=== PATIENT | female | born 1995 | race Caucasian/White ===

== ENCOUNTER 2016-08-10 08:56 | Inpatient (IN) | payer BC ==
[~2016-08-10] VITALS: Ht 162.6 cm; Wt 121.1 kg
--- NOTE | ~2016-08-10 | OR ---
PATIENT'S NAME: CHRISTIAN NEAL [facility] AGE: 21 Y [address] ROOM: [place] [id number] LOCATION: GOBS ADMIT DATE: 08/10/2016 OR/Procedure Report DISCHARGE DATE: FAMILY PHYSICIAN: Shabnam Solis MD ATTENDING PHYSICIAN: Shabnam Solis SURGEON: Toro Camargo MD RAIL CAR MECHANIC: Shabnam Solis M.D. Her assistance was required for delivery of the fetus as well as adequate exposure during the case. DATE OF PROCEDURE: 08/11/2016 PREOPERATIVE DIAGNOSES: 1. Intrauterine at 40 weeks 4 days. 2. Arrest of dilation. 3. Bipolar disorder. 4. Obesity. POSTOPERATIVE DIAGNOSES: 1. Intrauterine at 40 weeks 4 days. 2. Arrest of dilation. 3. Bipolar disorder. 4. Obesity. PROCEDURE PERFORMED: Primary low transverse section. ANESTHESIA: Epidural. FINDINGS: Viable female with score of 8 and 9 and weight of 7 pounds 1 ounce. Placenta intact with 3-vessel cord. Normal uterus. Normal fallopian tubes and ovaries bilaterally. ESTIMATED BLOOD LOSS: 700 mL. COMPLICATIONS: None. INDICATIONS: The patient is a 21-year-old female, who presented to Labor and Delivery at 40 weeks 3 days for induction of labor. She progressed to 9 cm and had arrest of dilation. section was recommended. She was counseled about the risks of the procedure including, bleeding, infection, damage to surrounding organs and tissue including bowel, bladder, blood vessels, ureters, and nerves. She was counseled about the risk of needing additional procedures or hospitalization due to any complications. DESCRIPTION OF PROCEDURE: The patient was taken to the operating room. Plascencia catheter was already in place. Epidural was already in place. She was placed PATIENT'S NAME: CHRISTIAN NEAL [facility] AGE: 21 Y [address] ROOM: [place] [id number] LOCATION: [facility] ADMIT DATE: 08/10/2016 OR/Procedure Report DISCHARGE DATE: FAMILY PHYSICIAN: Shabnam Solis MD ATTENDING PHYSICIAN: Shabnam Solis in dorsal supine position. She was prepped and draped in the usual sterile fashion. Time-out was performed. Anesthesia was found to be adequate. A scalpel was then used to make a Pfannenstiel incision and carried down to the underlying fascia. The fascial incision was scored in the midline and the fascial incision was carried laterally with Ortiz scissors bilaterally. The rectus muscles were dissected off the fascia superiorly and inferiorly with sharp and blunt dissection. The peritoneum was identified and entered bluntly. The peritoneal incision was extended. A bladder blade was placed for visualization. A scalpel was then used to make transverse incision in the lower uterine segment. This was extended in cephalad-caudal direction. The head was brought through the incision and delivered followed by the remainder of the fetus. The cord was clamped and cut. The infant was taken over to the delivery team. Cord blood was obtained. The placenta was then extracted. The uterus was exteriorized and cleared off remaining clots and debris. Uterine atony was noted at this time. The hysterotomy was closed in running locked fashion using 0 chronic suture. The patient did receive Methergine for uterine atony with improvement of uterine tone. Hemostasis did require [id number] sutures at each angle as well as two in the midline. The posterior cul-de-sac was cleared off remaining clots and debris. The uterus was replaced into the abdominal cavity. The pericolic gutters were cleared of clots and debris. Hysterotomy was re-examined and noted to be hemostatic. The rectus muscles and fascia were inspected and noted to be hemostatic. The fascia was then closed in running fashion using 0 Vicryl suture. The subcutaneous tissue was irrigated and any areas bleeding were cauterized. It was then closed in a running fashion using 2-0 Vicryl. The skin was then closed in subcuticular fashion using 4-0 Monocryl followed by Steri-Strips and a pressure dressing. Instrument, sponge, and needle counts were correct prior to the abdominal closure and at the conclusion the case. DISPOSITION: Mom stable. Baby in room with mom. MD MICHELLE HAMILTON/guerda /[id number] d: 08/11/16 0233 t: 08/14/16 1309, OPERATIVE SUMMARY
--- NOTE | ~2016-08-10 | CON ---
PATIENT'S NAME: CHRISTIAN NEAL [facility] AGE: 21 Y [address] ROOM: [place] [address] LOCATION: BS ADMIT DATE: 08/10/2016 Consultation DISCHARGE DATE: FAMILY PHYSICIAN: Shabnam Solis MD ATTENDING PHYSICIAN: Shabnam Solis CONSULT NOTE I was consulted on this patient for arrest of dilation by Dr. Shabnam Solis. She was induction of labor today at 40 weeks 4 days. She progressed to 9 cm and had arrest of dilation. Therefore, my consultation was requested. The patient did have artificial rupture of membranes at 9 cm and failed to progress despite being on Pitocin. station was -1. status showed early decelerations with each contraction with moderate variability. The patient was counseled about the risks of procedure including bleeding, infection, damage to surrounding organs and tissues, including bowel, bladder, blood vessels, ureters, and nerves. She was counseled on the risk of needing additional procedures or hospitalizations due to any complications. The patient signed consents and agreed to proceed with delivery. MD MICHELLE HAMILTON/guerda /[id number] d: 08/11/16 0357 t: 08/14/16 1312, CONSULTATION REPORT
--- NOTE | ~2016-08-10 | HP ---
PATIENT'S NAME: CHRISTIAN NEAL [facility] AGE: 21 Y [address] ROOM: [place] [address] LOCATION: [facility] ADMIT DATE: 08/10/2016 History & Physical DISCHARGE DATE: FAMILY PHYSICIAN: Shabnam Solis MD ATTENDING PHYSICIAN: Shabnam Solis DATE OF SERVICE: HISTORY OF PRESENT ILLNESS: The patient is a 21-year-old G1, P0, at 40 weeks 4 days' gestation, who was being induced today for postdates' gestation. When she arrived, her cervix was found to be 2 cm dilated, 50% effaced, and -3 station with baby in the vertex position. She was started on Pitocin. She had good cervical change until approximately 2057 hours this evening. At that time, she was found to be 9 cm dilated with bulging bag of water and -1 station. I performed artificial rupture of membranes with clear fluid at approximately 2200 hours. Since then, she has had early variables with each contraction. There has been no further cervical change as her cervix is still 9 cm dilated, 90% effaced, and -1 station. PAST MEDICAL HISTORY: History of bipolar disorder. PAST SURGICAL HISTORY: None. FAMILY HISTORY: Noncontributory. MEDICATIONS: 1. Lamictal 25 mg twice daily. 2. vitamins daily. SOCIAL HISTORY: She lives with her significant other. 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 Rare caffeine use. Nonsmoker. REVIEW OF SYSTEMS: On arrival, she denied any fevers or chills. Denied any chest pain or shortness of breath. Denied any nausea, vomiting, diarrhea, or constipation. Denied any urinary symptoms. Denied any vaginal discharge or leakage of fluid. Denied any vaginal bleeding. Noted good movement. Denied any extremity swelling. OB HISTORY: PATIENT'S NAME: CHRISTIAN NEAL [facility] AGE: 21 Y [address] ROOM: [place] [address] LOCATION: [facility] ADMIT DATE: 08/10/2016 History & Physical DISCHARGE DATE: FAMILY PHYSICIAN: Shabnam Solis MD ATTENDING PHYSICIAN: Shabnam Solis She is a primip. Her EDC is on August 06, 2016 based on LMP. The first trimester ultrasound confirmed this with an EDC of August 01, 2016. Blood pressure ranges from 100 to 120 over 60 to 80. Weight gain has been approximately 20 pounds. Her blood type A positive. Antibody screen negative. GBS negative. Pap normal. Rubella immune. RPR nonreactive. Hepatitis B surface antigen negative. Quad screen was declined. PHYSICAL EXAMINATION: VITAL SIGNS: See nursing record. GENERAL: She is awake, alert, and oriented. No signs of distress. HEART: Regular rate and rhythm without murmur. LUNGS: Clear to auscultation throughout. No crackles or wheezing noted. ABDOMEN: Gravid and nontender. Nondistended. heart tones have been in the 130s, reactive with good variability until recently when she has been having early variables with each contraction. [place]: She is having contractions every 2 to 3 minutes. Cervix is now stalled at 9 cm dilated, 90% effaced, and -1 station. ASSESSMENT AND PLAN: A 21-year-old primip being induced with Pitocin today at 40 weeks 4 days' gestation for postdates, now with failure to progress. heart tones for the last hour and an half have showed persistent variables with each contraction. Despite adequate Pitocin induction and artificial rupture of membranes producing clear fluid, she has had no further cervical change past 9 cm dilated, 90% effaced, and -1 station. Pitocin has since been stopped. I have called and spoke with Dr. Camargo. We have planned to proceed with a primary low-transverse . She has had an epidural for pain control. She is GBS negative. MD XENIA DE JESUS/guerda /[id number] D: 243 T: 829 HISTORY & PHYSICAL
--- NOTE | ~2016-08-10 | DS ---
PATIENT'S NAME: CHRISTIAN NEAL [facility] AGE: 21 Y [address] ROOM: [id number] [place], [place] [address] LOCATION: GOBS ADMIT DATE: 08/10/2016 Discharge Summary DISCHARGE DATE: 08/13/2016 FAMILY PHYSICIAN: Shabnam Solis MD ATTENDING PHYSICIAN: Shabnam Solis ADMISSION DIAGNOSIS: A 21-year-old , being induced at 40 weeks 4 days gestation for postdates with arrest of dilation resulting in primary low- transverse . DISCHARGE DIAGNOSIS: A 21-year-old G1 now P1, delivery via primary low transverse done by Dr. Toro Camargo. HOSPITAL COURSE: The patient was admitted at 40 weeks 4 days gestation for induction for postdates. She was started on Pitocin. She had good cervical change until she was 9 cm dilated and stalled at that dilation. There was some non-reassuring heart tones. She was GBS negative. Dr. Camargo was consulted and proceeded with a primary low-transverse . The patient recovered well. No issues or concerns . She delivered a viable female , weighing 7 pounds 1 ounce, with score of 8 at 1 minute and 9 at 5 minutes. DISPOSITION: Discharged home. FOLLOWUP: She is to follow up with Dr. Camargo in 2 weeks on Tuesday, August 27, 2016, at 2:15 p.m. for incision check. She is to follow up with Dr. Shabnam Solis at [facility] at 6 weeks, September 23, 2016, at 3:45 p.m. for a visit. DISCHARGE MEDICATIONS: 1. vitamins daily. 2. Lamotrigine 25 mg p.o. b.i.d. 3. Colace 240 mg p.o. b.i.d. 4. Ibuprofen 800 mg p.o. q.8 hours p.r.n. pain. 5. Percocet 5/325 mg 1 to 2 p.o. q.4 hours p.r.n. pain. DISCHARGE INSTRUCTIONS: She is to have pelvic rest for 6 weeks. No lifting over 15 pounds for 4 weeks. SHABNAM SOLIS MD KB/modl PATIENT'S NAME: CHRISTIAN NEAL [facility] AGE: 21 Y [address] ROOM: [address] [address] LOCATION: [facility] ADMIT DATE: 08/10/2016 Discharge Summary DISCHARGE DATE: 08/13/2016 FAMILY PHYSICIAN: Shabnam Solis MD ATTENDING PHYSICIAN: Shabnam Solis /[id number] d: 08/31/16 0857 t: 09/21/16 0821, DISCHARGE SUMMARY
[2016-08-10 10:12] LABS: BASOPHIL # 0.1 K/uL (0.0-0.2); BASOPHIL % 0.3 %; EOSINOPHIL # 0.1 K/uL (0.0-0.5); HEMATOCRIT 35.5 % (33.0-46.0); HEMOGLOBIN 12.1 g/dL (11.0-15.0); IMMATURE GRANULOCYTE # 0.2 K/uL (0.0-0.3); IMMATURE GRANULOCYTE % 1.2 %; LYMPHOCYTE # 2.8 K/uL (0.8-4.0); LYMPHOCYTE % 19.3 %; MCH 27.8 pg (27.0-34.0); MCHC 34.1 gm/dL (32.0-36.5); MCV 81.6 fl (83.0-98.0); MONOCYTE # 0.9 K/uL (0.0-1.0); MONOCYTE % 6.2 %; MPV 11.3 fl (9.4-12.4); NEUTROPHIL # (ANC) 10.4 K/uL (1.8-7.8); NRBC % 0 /100WBC (0-0.00); PLATELET COUNT 171 K/uL (150-450); RBC 4.35 M/uL (3.50-5.00); RDW-CV 14.8 % (11.9-14.6); WBC 14.4 K/uL (4.0-11.0)
[2016-08-10] MEDS ORDERED: PRENATAL 1+1)(P1 TAB PO (11:43)
[2016-08-10] MEDS ORDERED: LAMICTAL100 MG PO (11:44)
[2016-08-10] MEDS ORDERED: LAMICTAL25 MG PO (11:54)
[2016-08-11 05:13] LABS: BASOPHIL # 0.1 K/uL (0.0-0.2); BASOPHIL % 0.2 %; EOSINOPHIL % 0.1 %; HEMATOCRIT 34.1 % (33.0-46.0); HEMOGLOBIN 11.5 g/dL (11.0-15.0); IMMATURE GRANULOCYTE # 0.2 K/uL (0.0-0.3); IMMATURE GRANULOCYTE % 0.7 %; LYMPHOCYTE # 1.8 K/uL (0.8-4.0); LYMPHOCYTE % 8.3 %; MCH 27.7 pg (27.0-34.0); MCHC 33.7 gm/dL (32.0-36.5); MCV 82.2 fl (83.0-98.0); MONOCYTE # 0.8 K/uL (0.0-1.0); MONOCYTE % 3.8 %; NEUTROPHIL # (ANC) 18.7 K/uL (1.8-7.8); NEUTROPHIL % 86.9 %; NRBC % 0 /100WBC (0-0.00); PLATELET COUNT 181 K/uL (150-450); RBC 4.15 M/uL (3.50-5.00); RDW-CV 14.9 % (11.9-14.6); WBC 21.6 K/uL (4.0-11.0)
--- NOTE | 2016-08-11 11:07 | NUR ---
Met with patient, spouse and multiple family members at bedside today. Introduced myself and the role of the CM department. Parents indicate they have all the necessary items for the baby. They have already contacted their insurance and they are only waiting on social security number to get baby added. Parents voice no concerns or needs. Will continue to follow while here.
--- NOTE | 2016-08-12 05:34 | NUR ---
VSS, fundus firm, mid, small flow, incision open to air, Perc last at 2130
--- NOTE | 2016-08-12 13:34 | NUR ---
Met with patient today to discuss signs of symptoms of post depression. Patient is bipolar and currently on Lamictal. She has a psychiatrist that manages her medications and bipolar symptoms. Reviewed all signs and symptoms of post depression with her and her spouse. Provided her with the hand out on PPD to refer to. Will continue to follow and offer supports.
--- NOTE | 2016-08-12 17:55 | NUR ---
08/12/16 1800; Encouraged longer Breastfeedings. VSS. Low abd. inc. intact/suture/steri. Last Perc@___ Bertrand at___. does well with infant.
--- NOTE | 2016-08-13 04:51 | NUR ---
VSS, fundus firm, 1 down, small flow, Percocet last at 0335
[2016-08-13] MEDS ORDERED: SURFAK240 MG PO (11:03)
[2016-08-13] MEDS ORDERED: ADVIL200 MG PO (11:04)
[2016-08-13] MEDS ORDERED: PERCOCET 5-3251 EACH PO (11:05)
== END 2016-08-13 11:55 | disposition disaster alternative care site (69) | DRG 765 ==
LOC: GOBM 08:56 → GOBS 08:56 → GOBM 08:57 → GOBS 18:20
PROVIDERS: ADMIT Family Medicine
PROC: 3E033VJ Introduction of Other Hormone into Peripheral Vein, Percutaneous Approach (ICD-10-PCS; principal; 2016-08-11)
PROC: 4A1HX4Z Monitoring of Products of Conception, Cardiac Electrical Activity, External Approach (ICD-10-PCS; principal; 2016-08-11)
PROC: 10D00Z1 Extraction of Products of Conception, Low, Open Approach (ICD-10-PCS; principal; 2016-08-11)
PROC: 10907ZC Drainage of Amniotic Fluid, Therapeutic from Products of Conception, Via Natural or Artificial Opening (ICD-10-PCS; principal; 2016-08-11)
DX: O62.1 Secondary uterine inertia (principal); Z68.42 Body mass index [BMI] 45.0-49.9, adult; F33.9 Major depressive disorder, recurrent, unspecified; O99.214 Obesity complicating childbirth; Z3A.40 40 weeks gestation of pregnancy; Z37.0 Single live birth
CPT/HCPCS: J0690; J1885; J2001; J2210; J2590; J3010; J7120

== ENCOUNTER 2016-08-24 01:24 | Observation (INO) | payer BC ==
[~2016-08-24] VITALS: Ht 162.6 cm; Wt 111.6 kg
--- NOTE | ~2016-08-24 | CON ---
PATIENT'S NAME: CHRISTIAN NEAL [facility] AGE: 21 Y [address] ROOM: [place] [address] LOCATION: GPCU ADMIT DATE: 08/24/2016 Consultation DISCHARGE DATE: FAMILY PHYSICIAN: Shabnam Solis MD ATTENDING PHYSICIAN: Shabnam Solis DATE OF CONSULTATION: 08/24/2016 REFERRING PHYSICIAN: TORO CAMARGO MD REASON FOR CONSULTATION: Pulmonary embolism after section. REFERRING PHYSICIAN: Dianne Tejada MD. CONSULTING PHYSICIAN: Toro Camargo MD. HISTORY OF PRESENT ILLNESS: The patient is a 21-year-old female who underwent a primary low-transverse section on August 11, 2016 for arrest of dilation at 40 weeks and 4 days. The patient's postoperative course is uncomplicated. She was discharged home on postoperative day #2. The patient presented to the ER overnight complaining of chest pain that radiated to her back. CT was performed and found to have pulmonary emboli at her lower lobe. The patient now feels well. She denies any other concerns. She denies any leg pain. Her incision is doing well and she is no longer needing ibuprofen or narcotics for her pain. PAST MEDICAL HISTORY: Bipolar disorder. PAST SURGICAL HISTORY: section on August 11, 2016. MEDICATIONS: Lamictal and vitamin. SOCIAL HISTORY: The patient denies tobacco, alcohol, or drug use. FAMILY HISTORY: The patient does report that her mother had a VTE after a surgery on her foot for bunion removal and that her uncle also had a VTE, but also has multiple other health issues and had an infection. PATIENT'S NAME: CHRISTIAN NEAL [facility] AGE: 21 Y [address] ROOM: [place] [id number] LOCATION: GPCU ADMIT DATE: 08/24/2016 Consultation DISCHARGE DATE: FAMILY PHYSICIAN: Shabnam Solis MD ATTENDING PHYSICIAN: Shabnam Solis REVIEW OF SYSTEMS: Negative except as noted in the HPI. ALLERGIES: NO KNOWN MEDICAL ALLERGIES. PHYSICAL EXAMINATION: VITAL SIGNS: Blood pressure of 134/84, temp 97.8, respiratory rate 14, pulse 85. GENERAL: She is alert and oriented, no acute distress. ABDOMEN: Soft and nontender. Incision is healing well. No erythema, ecchymosis, or disruption of the incision. EXTREMITIES: No edema. No pain of the lower extremities. DIAGNOSTIC DATA: Laboratory work shows hemoglobin is 10.6, creatinine of 0.9. AST and ALT are normal. Radiology, she had a normal chest x-ray and PE protocol. CT scan did show a left lower lobe subsegmental and segmental pulmonary emboli and pulmonary arteries. ASSESSMENT: The patient is a 21-year-old who is postop day #14, status post primary low transverse section, now with a pulmonary embolism. RECOMMENDATIONS: I recommended that the patient be started on Lovenox. I have discussed with Dr. Tejada that warfarin is safe with and thus it is easier with warfarin, need for the patient to take all medications and she can be bridged to warfarin. Recommended treatment time is 3 to 6 months. I did discuss with the patient that she will need prophylactic Lovenox with her next to prevent blood clot. We discussed that this could just be uncertainty related event. She states she had testing done and was negative for workup for thrombophilias, but this could be considered with her. All questions were answered. I appreciate this consult. MD MICHELLE HAMILTON/guerda /[id number] d: 08/24/16 1546 t: 08/29/16 1129, CONSULTATION REPORT
--- NOTE | ~2016-08-24 | HP ---
PATIENT'S NAME: JESSICA NEAL [facility] AGE: 21 Y [address] ROOM: [place] [address] LOCATION: GPCU ADMIT DATE: 08/24/2016 History & Physical DISCHARGE DATE: FAMILY PHYSICIAN: Shabnam Solis MD ATTENDING PHYSICIAN: Shabnam Solis DATE OF SERVICE: CHIEF COMPLAINT: Chest pain. HISTORY OF PRESENT ILLNESS: Jessica is a 21-year-old, 1, para 1, who is 2 weeks' postcesarean section, who presented to the emergency room in the middle of the night with sudden onset of chest pain which is pleuritic in nature radiating through to her back and shortness of breath. She is evaluated by Dr. Briggs in the emergency room and found to have a left lower lobe pulmonary embolism. At this time, she is feeling much better. Her pain has resolved. The shortness of breath has resolved. Her vitals have been stable and her oxygen saturation was 100% done in the ER and she never required any supplemental oxygen. She denies any pain or swelling in her legs at this time. She underwent on 08/14/2016, after arrest of dilation. There were no complications during the surgery, or postoperatively, she did not require any blood. She went home in the usual time. She has otherwise been healthy. She denies any prior history of blood clots. She is a nonsmoker. No significant family history of blood clots. PAST MEDICAL HISTORY: Operations includes section. No other hospitalizations. Illnesses: Bipolar disorder and obesity. MEDICATIONS: 1. Lamictal 25 mg b.i.d. 2. vitamins. 3. Ibuprofen 200 mg every 6 hours as needed for pain. ALLERGIES: NONE KNOWN. FAMILY HISTORY: Positive for diabetes, hypertension, and heart disease in maternal grandmother. She had a paternal uncle with a blood clot and an aunt with a blood clot. The aunt had testing and was found to have no genetic predisposition. PATIENT'S NAME: JESSICA NEAL [facility] AGE: 21 Y [address] ROOM: [place] [address] LOCATION: GPCU ADMIT DATE: 08/24/2016 History & Physical DISCHARGE DATE: FAMILY PHYSICIAN: Shabnam Solis MD ATTENDING PHYSICIAN: Shabnam Solis SOCIAL HISTORY: She is a nonsmoker, nondrinker. She is , just had her first baby 2 weeks ago. She is currently breast-feeding and is producing excellent supply of milk. She states she is getting 5 ounces every time she pumps and the baby is taking about 3. 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 REVIEW OF SYSTEMS: GENERAL: Negative. ENT: Negative. CARDIOVASCULAR: See HPI. RESPIRATORY: Currently, no shortness of breath, coughing, or wheezing. GI: Negative. : Negative. MUSCULOSKELETAL: Negative. PSYCH: Her mood disorder is very well controlled with the Lamictal. She has a history of depression and suicidality in her high school and college years, but that it has been at least 2 to 3 years ago. She denies having depression at this time. PHYSICAL EXAMINATION: GENERAL: Jessica is a well-developed, well-nourished 21-year-old female. She is alert, cooperative, in no acute distress. She gives an excellent history. VITAL SIGNS: Temperature 98.2, pulse 74 and regular, respirations 14, blood pressure 139/75, height 5 feet 4 inches, weight 111.6 kg, and BMI is 42.2. HEENT: Pupils are equal and reactive. Extraocular muscles intact. Sclerae are clear. Oropharynx is normal with moist mucous membranes. NECK: Supple without masses or thyromegaly. HEART: Regular rate and rhythm without murmurs. LUNGS: Lung sounds are clear in all rod. ABDOMEN: Soft. No organomegaly, masses, or tenderness. Her scar is well healed. EXTREMITIES: She has only trace peripheral edema. No calf tenderness. Negative Homans. LAB WORK: White blood count 10.8, hemoglobin 10.6, and platelets 309,000. Differential is unremarkable. PT and PTT are normal. Chemistry Panel: Potassium low- normal at 3.6 and albumin 2.9. The rest of her chemistry panel was normal. CK, CK-MB, and troponin all negative. Magnesium 2.1. Quantitative HCG is 5.0. D-dimer elevated at 8.92. Chest x-ray negative. CT of the chest with PE protocol does reveal a segmental and subsegmental pulmonary emboli in the left lower lobe. PATIENT'S NAME: JESSICA NEAL [facility] AGE: 21 Y [address] ROOM: [id number] [place], [place] [address] [facility] ADMIT DATE: 08/24/2016 History & Physical DISCHARGE DATE: FAMILY PHYSICIAN: Shabnam Solis MD ATTENDING PHYSICIAN: Shabnam Solis ASSESSMENT: 1. Acute pulmonary embolism. 2. 2 weeks' postop . 3. Breast-feeding. 4. Obesity. 5. Mood disorder, stable. PLAN: She is being admitted to the hospital for observation. I have initiated Lovenox 1 mg/kg subcutaneously every 12 hours in the emergency room. We will have Dr. Camargo consult. Her vitals are excellent and her O2 saturations is 100%, so likely she will be able to continue treatment for the pulmonary embolism as an outpatient beginning tomorrow if all are stable. Duplex scan of both lower extremities is pending. We will allow her to breast-feed and after consultation with Dr. Camargo. I have given her the options of continuing with Lovenox or switching to Coumadin and she would prefer to switch to Coumadin, so we will begin that process tomorrow. She will likely go home on Lovenox and Coumadin until the INR is therapeutic. We will plan continuous anticoagulants for 6 months. PROGNOSIS: Good. MD ADELA STONE/guerda /[id number] D: 134 T: 428 HISTORY & PHYSICAL
--- NOTE | ~2016-08-24 | ENPV ---
Vascular Lower Extremities DVT Study Procedure Demographics Patient Name CHRISTIAN NEAL Date of Study 08/25/2016 Patient Number [id number] Gender Female Date of 1995 Age 21 Visit Number [id number] Height Accession Number [id number] Weight Room Number G6334 BSA BMI Referring Terrell Gay MD Interpreting Phuc Chavez MD Physician Will Castellano MD Physician Physician Ordering Physician Terrell Gay MD Structural Rigger Baggage Inspector Brennen Engel [facility] Conclusions Summary No evidence of deep vein thrombosis or superficial thrombophlebitis in the lower extremities bilaterally . There is rouleaux flow seen in the left popliteal vein- sometimes associated with fluid overload states or more proximal obstruction. Procedure Type of Study: Veins:Lower Extremities DVT Study, Venous Duplex Lower Extremity Bilateral. Indications for Study:Pulmonary embolism. Appropriate Use Criteria:9 Study Location:Inpatient Portable. Technical Quality:Adequate visualization. - Preliminary reported to:Dr. Tejada. Velocities are measured in cm/s ; Diameters are measured in cm Right Lower Extremities DVT Study Measurements Right 2D and Doppler Measurements + + + + +------+------+ + !Location !Visualized!Compressibility!Thrombosis!Signal!Reflux!Reflux ! ! ! ! ! ! ! !(sec) ! + + + + +------+------+ + !GSV Thigh !Yes !Yes !None !Phasic! ! ! + + + + +------+------+ + !Common !Yes !Yes !None !Phasic! ! ! !Femoral ! ! ! ! ! ! ! + + + + +------+------+ + !Prox !Yes !Yes !None !Phasic! ! ! !Femoral ! ! ! ! ! ! ! + + + + +------+------+ + !Mid Femoral!Yes !Yes !None !Phasic! ! ! + + + + +------+------+ + !Dist !Yes !Yes !None !Phasic! ! ! !Femoral ! ! ! ! ! ! ! + + + + +------+------+ + !Popliteal !Yes !Yes !None !Phasic! ! ! + + + + +------+------+ + !Gastroc !Yes !Yes !None ! ! ! ! + + + + +------+------+ + !PTV !Yes !Yes !None ! ! ! ! + + + + +------+------+ + !Peroneal !Yes !Yes !None ! ! ! ! + + + + +------+------+ + Left Lower Extremities DVT Study Measurements Left 2D and Doppler Measurements + + + + +------+------+ + !Location !Visualized!Compressibility!Thrombosis!Signal!Reflux!Reflux ! ! ! ! ! ! ! !(sec) ! + + + + +------+------+ + !GSV Thigh !Yes !Yes !None !Phasic! ! ! + + + + +------+------+ + !Common !Yes !Yes !None !Phasic! ! ! !Femoral ! ! ! ! ! ! ! + + + + +------+------+ + !Prox !Yes !Yes !None !Phasic! ! ! !Femoral ! ! ! ! ! ! ! + + + + +------+------+ + !Mid Femoral!Yes !Yes !None !Phasic! ! ! + + + + +------+------+ + !Dist !Yes !Yes !None !Phasic! ! ! !Femoral ! ! ! ! ! ! ! + + + + +------+------+ + !Popliteal !Yes !Yes !None !Phasic! ! ! + + + + +------+------+ + !Gastroc !Yes !Yes !None ! ! ! ! + + + + +------+------+ + !PTV !Yes !Yes !None ! ! ! ! + + + + +------+------+ + !Peroneal !Yes !Yes !None ! ! ! ! + + + + +------+------+ + Signature dtt: NOE MARIE dtd: 08/25/16 [facility] [place] Physician Volodymyr Cárdenas
--- NOTE | ~2016-08-24 | ER ---
PATIENT'S NAME: CHRISTIAN NEAL [facility] AGE: 21 Y [address] ROOM: [place] [address] LOCATION: GPCU ADMIT DATE: 08/24/2016 ER/Outpatient Report DISCHARGE DATE: FAMILY PHYSICIAN: Shabnam Solis MD ATTENDING PHYSICIAN: Dianne Tejada Time of Arrival: 0124 hours. Time Seen: 0124 hours. IDENTIFICATION: A 21-year-old female. CHIEF COMPLAINT: Chest and back pain and difficulty breathing. HISTORY OF PRESENT ILLNESS: The patient is a 21-year-old female who woke up at 12:45 with pain in her mid chest, upper abdomen, radiating through to her back. Sudden onset associated with shortness of breath. No diaphoresis. No nausea or vomiting. No other problems or concerns. PAST MEDICAL HISTORY: ALLERGIES: NO KNOWN DRUG ALLERGIES. CURRENT MEDICATIONS: 1. Lamictal. 2. vitamins. MEDICAL PROBLEMS: Bipolar disorder. OB HISTORY: The patient is a G1, P0, who had a primary low-transverse section on 08/10/2016 for failure to progress. The patient is . SOCIAL HISTORY: The patient has a 2-week-old girl. She is . Lives here in [place]. 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 Tobacco use, denies. Alcohol use, occasional. Drug use, denies. REVIEW OF SYSTEMS: All systems reviewed and negative other than what is noted in the HPI. The patient denies any lower extremity swelling. The patient continues to have PATIENT'S NAME: CHRISTIAN NEAL [facility] AGE: 21 Y [address] ROOM: [place] [address] LOCATION: GPCU ADMIT DATE: 08/24/2016 ER/Outpatient Report DISCHARGE DATE: FAMILY PHYSICIAN: Shabnam Solis MD ATTENDING PHYSICIAN: Dianne Tejada just a minimal amount of vaginal bleeding. The patient has not been sexually active since delivery of her baby. FAMILY HISTORY: Mother had PE following foot surgery but was apparently negative for coagulopathy workup. PHYSICAL EXAMINATION: VITAL SIGNS: Height 5 feet 4 inches, weight 111.9 kilogram, blood pressure 152/94, pulse 82, respirations 18, temperature 97.5, sats 100% on room air. GENERAL: A 21-year-old female, in mild distress. HEENT: Head; normocephalic, atraumatic. Ears: TMs translucent, both ears. Eyes: Pupils equal and reactive to light and accommodation. Extraocular movements intact. Conjunctivae clear. Nose: Mucosa pink. No lesions or drainage. Mouth: No lesions. Pharynx benign. NECK: Supple. No lymphadenopathy. LUNGS: Clear to auscultation. Breath sounds are equal. No rhonchi, wheezes, or rales. HEART: Regular rate and rhythm. No murmur, rub, or gallop. ABDOMEN: Bowel sounds present. Soft, nondistended. No hepatosplenomegaly. No palpable masses. Nontender. The patient has no abdominal pain and no right upper quadrant tenderness on exam. SKIN: [place], warm, and dry. No lesions or rashes noted. NEURO: The patient is alert and oriented x4. Cranial nerves 2 through 12 grossly intact. Motor strength 5/5 throughout. Sensation is intact to light touch. She does have trace of lower extremity edema, left greater than right. No calf tenderness. LABORATORY DATA AND X-RAYS: Chest x-ray, 1 view, no acute process. Pending Radiology overread. EKG; normal sinus rhythm at 74 beats per minute, no acute ST elevation or depression, she does have a slight Q-wave in lead III, T-wave inversion in V1. No previous EKG available for comparison. Hemoglobin 10.6, most recent hemoglobin on August 11 was 11.5; hematocrit 32.7; microcytic hyperchromic indices. INR 0.98. Sodium 143, potassium 3.6, chloride 110, CO2 of 25, BUN 10, creatinine 0.9, blood sugar 82. Liver enzymes normal. Magnesium 2.1. CPK 37, CK-MB less than 0.5. HCG 5. Troponin I less than 0.040. D-dimer elevated at 8.92. CT PE protocol, evidence of acute pulmonary emboli in segmental branches of the left lower lobe, no evidence of infarct, no other abnormality identified, she does have mild gallbladder wall thickening, no calcified stone and the gallbladder appears to be normal in size. IMPRESSION: PATIENT'S NAME: CHRISTIAN NEAL [facility] AGE: 21 Y [address] ROOM: [id number] [place], [place] [id number] LOCATION: [facility] ADMIT DATE: 08/24/2016 ER/Outpatient Report DISCHARGE DATE: FAMILY PHYSICIAN: Shabnam Solis MD ATTENDING PHYSICIAN: Dianne Tejada Acute pulmonary emboli, segmental branches of the left lower lobe. PLAN: 1. For admission per Dr. Tejada for Dr. Solis. Lovenox 110 mg subcu (1 mg/kg) was given here in the emergency room. 2. Two weeks . The patient is currently . She will have to pump and dump as per Radiology protocol after CT scan with IV contrast. 3. Bipolar disorder, on Lamictal, stable. 4. Mild hypokalemia. 5. The patient remained hemodynamically stable throughout her stay here in the emergency room, and her pain improved spontaneously. ROSS HOLDEN MD CAR/modl /[id number] d: 08/24/16 0524 t: 08/26/16 0658, OUTPATIENT REPORT
--- NOTE | ~2016-08-24 | DS ---
PATIENT'S NAME: JESSICA NEAL [facility] AGE: 21 Y [address] ROOM: [id number] [place], [place] [address] LOCATION: GPCU ADMIT DATE: 08/24/2016 Discharge Summary DISCHARGE DATE: 08/25/2016 FAMILY PHYSICIAN: Shabnam Solis MD ATTENDING PHYSICIAN: Shabnam Solis PRINCIPAL DIAGNOSES: 1. Acute left lower lobe pulmonary embolism. 2. Two weeks postop section. 3. Bipolar disorder. 4. Obesity. SUMMARY: Jessica is a 21-year-old 1, para 1, female who presented to the ER with sudden onset of chest pain. She was found to have a left lower lobe pulmonary embolism. She is admitted and placed on Lovenox subcutaneously at therapeutic dose of 1 mg/kg. Her symptoms resolved. She never required any oxygen. Her vital signs are stable. She is eating, up and about, and is virtually asymptomatic at this time. Dr. Camargo did consult as well and did inform her that in future pregnancies, she would need to be on blood thinners. At this time, she is medically stable and ready to go home. She has elected to go for Coumadin for therapy rather than the Lovenox. I have started Coumadin today, 08/25/2016, and will continue Lovenox at a dose of 1 mg/kg b.i.d. DISMISSAL: Jessica is dismissed in improved condition on 08/25/2016. Her diet will be as tolerated. Activity as tolerated. Pending is a venous duplex scan. DISMISSAL MEDICATIONS: 1. Lovenox 110 mg subcutaneously every 12 hours for at least the next 7 days until her INR is therapeutic. She is also on Coumadin 5 mg daily. 2. She will continue on her home medications of vitamins, Lamictal 25 mg b.i.d., and is to discontinue ibuprofen and any NSAIDs. Did discuss signs and symptoms of bleeding which she should bring to our attention immediately if those occur. Plan to treat 3-6 months. PROGNOSIS: Good. BECKIE MARY MD BME/modl PATIENT'S NAME: JESSICA NEAL [facility] AGE: 21 Y [address] ROOM: [place] [address] LOCATION: GPCU ADMIT DATE: 08/24/2016 Discharge Summary DISCHARGE DATE: 08/25/2016 FAMILY PHYSICIAN: Shabnam Solis MD ATTENDING PHYSICIAN: Shabnam Solis /[id number] d: 08/26/16 0256 t: 08/27/16 0819, DISCHARGE SUMMARY
[~2016-08-24 01:24] MED LIST: ADVIL200 MG PO; LAMICTAL100 MG PO; LAMICTAL25 MG PO; PERCOCET 5-3251 EACH PO; PRENATAL 1+1)(P1 TAB PO; SURFAK240 MG PO
[2016-08-24 01:49] LABS: BASOPHIL # 0.1 K/uL (0.0-0.2); BASOPHIL % 0.6 %; EOSINOPHIL # 0.2 K/uL (0.0-0.5); EOSINOPHIL % 1.9 %; HEMATOCRIT 32.7 % (33.0-46.0); HEMOGLOBIN 10.6 g/dL (11.0-15.0); IMMATURE GRANULOCYTE # 0.1 K/uL (0.0-0.3); IMMATURE GRANULOCYTE % 0.5 %; LYMPHOCYTE # 3.6 K/uL (0.8-4.0); LYMPHOCYTE % 32.9 %; MCH 26.8 pg (27.0-34.0); MCHC 32.4 gm/dL (32.0-36.5); MCV 82.8 fl (83.0-98.0); MONOCYTE # 0.5 K/uL (0.0-1.0); MONOCYTE % 4.8 %; MPV 8.7 fl (9.4-12.4); NEUTROPHIL # (ANC) 6.4 K/uL (1.8-7.8); NEUTROPHIL % 59.3 %; NRBC % 0 /100WBC (0-0.00); PLATELET COUNT 309 K/uL (150-450); RBC 3.95 M/uL (3.50-5.00); RDW-CV 14.6 % (11.9-14.6); WBC 10.8 K/uL (4.0-11.0)
[2016-08-24 02:01] LABS: INR - (THERAPEUTIC) 0.98 (0.92-1.07); PROTIME 10.3 SECONDS (9.8-11.4); PTT 29 SECONDS (25-32)
[2016-08-24 02:09] LABS: ALBUMIN 2.9 gm/dL (3.5-5.0); ALK PHOS 136 IU/L (33-138); ALT 20 IU/L (12-78); ANION GAP 11.6 (10.0-19.0); AST 17 IU/L (10-40); BLOOD UREA NITROGEN 10 mg/dL (6-24); CALCIUM 8.5 mg/dL (8.5-10.5); CHLORIDE 110 mMol/L (96-110); CO2 25 mMol/L (22-32); CPK 37 IU/L (21-215); CREATININE 0.9 mg/dL (0.5-1.1); ESTIMATED GFR (MDRD EQUATION) > 60; MAGNESIUM 2.1 mg/dL (1.8-2.6); POTASSIUM 3.6 mMol/L (3.7-5.1); SODIUM 143 mMol/L (135-145); TOTAL BILIRUBIN 0.3 mg/dL (0.0-1.5); TOTAL PROTEIN 7.1 g/dL (6.0-8.4)
--- NOTE | 2016-08-24 04:40 | NUR ---
Pt 2 weeks post . Came to ED d/t new onset chest pain/sob that woke her at 0100. Pain has since resolved on its own. Diagnosed with PE in ED. Given Lovenox shot in Ed. SBA. VSS on RA, Afebrile. at bedside. Is currently .
--- NOTE | 2016-08-24 16:22 | NUR ---
Significant Event: Patient alert/oriented x3. Vital signs stable. On room air. Denies any pain. Dr. Tejada rounded on patient today and ordered to start Coumadin tomorrow as well as care management to see since patient will need Lovenox upon dismissal. Venous duplex scan did not get done today; on-call vascular contacted to determine what time she was going to get this done and they said that it would have to wait until tomorrow unless it was an emergency. Dr. Tejada notified to get order for scan to be done tomorrow. She stated that this needs to be done first thing in AM, since she needs the results before patient goes home. Follow up: Continue to monitor. Dismiss to home tomorrow.
--- NOTE | 2016-08-25 05:21 | NUR ---
Significant Event: A/0 X 3, UP AD ANGEL IN ROOM. FAMIILY AT BEDSIDE ENTIRE EVENING. ALL VSS ON RA, AFEBRILE. NO COMPLICATIONS THIS EVENING. WILL BE DISCHARGED TODAY. WILL GO HOME ON LOVENOX TO [place] WITH COUMADIN. Follow up:
[2016-08-25] MEDS ORDERED: LOVENOX80 MG/0.8 SUB-Q (09:49)
[2016-08-25] MEDS ORDERED: LOVENOX 3030 MG/0.3 SUB-Q (09:49)
[2016-08-25] MEDS ORDERED: COUMADIN ** IA5 MG PO (09:50)
--- NOTE | 2016-08-25 12:32 | NUR ---
DISCHARGED TO HOME, WALKED OUT TO PRIVATE AUTO ACCOMPAINED BY RN. PATIENT GIVEN LOVENOX TEACHING WITH FEDE AND PATIENT DEMONSTRATED LOVENOX INJECTION TO RN. NEW MEDICATIONS DISCUSSED AND FOLLOW UP APPOINTMENTS. VSS. DENIES PAIN.
== END 2016-08-25 11:42 | disposition disaster alternative care site (69) ==
LOC: GMED 01:24 → GPCU 03:52
PROVIDERS: Family Medicine; ADMIT Family Medicine
DX: I26.99 Other pulmonary embolism without acute cor pulmonale (principal); F31.9 Bipolar disorder, unspecified; E66.9 Obesity, unspecified; Z68.41 Body mass index [BMI] 40.0-44.9, adult; Z98.890 Other specified postprocedural states
CPT/HCPCS: G0378; J1650; Q9967